=== PATIENT | male | born 1950 | race Caucasian/White ===

== ENCOUNTER 2018-05-04 12:53 | Inpatient (IN) | payer MEDICARE, OTHER ==
[~2018-05-04] VITALS: Ht 177.8 cm; Wt 105.0 kg
[~2018-05-04 12:53] MED LIST: HYDR28CR14 TOP
[2018-05-04] MEDS ORDERED: piperacillin/tazo 3.375gm/50ml 50 ML IV ONE (13:40)
[2018-05-04 14:17] LABS: C-REACTIVE PROTEIN 17.24 MG/DL (0.0-0.5)
[2018-05-04] MEDS ORDERED: thiamine 100mg/ml 2ml inj. IV ONE (14:40)
[2018-05-04] MEDS ORDERED: morphine 2 MG/ML inj. syringe IV PRN ×2 (14:40)
[2018-05-04] MEDS ORDERED: acetaminophen 325mg tablet PO PRN ×2 (14:40)
[2018-05-04] MEDS ORDERED: potassium Cl 40MEQ/NS 500ml 500 ML IV PRN ×2 (14:40)
[2018-05-04] MEDS ORDERED: diphenhydrAMINE 25mg capsule PO PRN (14:40)
[2018-05-04] MEDS: K and/or MAG REPLACEMENT MC SCH (14:40)
[2018-05-04] MEDS ORDERED: haloperidol 5mg tablet PO PRN (14:40)
[2018-05-04] MEDS ORDERED: dextrose 50%-water 50ml dispensing syringe IV PRN (14:40)
[2018-05-04] MEDS ORDERED: HYDROcodone/acetaminophen 5mg/325mg tablet PO PRN (14:40)
[2018-05-04] MEDS: atenolol 50mg tablet PO SCH (14:40)
[2018-05-04] MEDS ORDERED: ondansetron/PF 4mg/2ml inj IV PRN (14:40)
[2018-05-04] MEDS ORDERED: potassium Cl 20 mEq SR tablet PO PRN (14:40)
[2018-05-04] MEDS ORDERED: magnesium 1gm/100ml D5W IVPB 100 ML IV PRN (14:40)
[2018-05-04] MEDS ORDERED: diphenhydrAMINE 50 mg/ml inj IV PRN (14:40)
[2018-05-04] MEDS ORDERED: magnesium Cl slow-release 64mg tablet PO PRN (14:40)
[2018-05-04] MEDS ORDERED: mag hydrox/Alum hydrox/simeth 30ml oral suspension PO PRN (14:40)
[2018-05-04] MEDS ORDERED: LORazepam 2 mg/ml vial IV PRN (14:40)
[2018-05-04] MEDS ORDERED: bisacodyl 10mg suppository rectal RC PRN (14:40)
[2018-05-04] MEDS ORDERED: acetaminophen 650mg rectal suppository RC PRN (14:40)
[2018-05-04] MEDS ORDERED: magnesium 4gm in 100ml NS 100 ML IV PRN (14:40)
[2018-05-04] MEDS ORDERED: haloperidol lactate 5mg/ml inj IM PRN (14:40)
[2018-05-04] MEDS ORDERED: magnesium hydroxide 30ml (MOM) UD suspension PO PRN (14:40)
[2018-05-04 15:11] LABS: HEMOGLOBIN A1C 5.7 % (4.5-6.2)
[2018-05-04 15:12] LABS: ALANINE AMINOTRANSFERASE 13 U/L (12-78); ALBUMIN 2.5 G/DL (3.4-5.0); ALBUMIN/GLOBULIN RATIO 0.6 (1.1-1.5); ALKALINE PHOSPHATASE 117 IU/L (46-116); ANION GAP 12 (8-16); ASPARTATE AMINO TRANSFERASE 23 U/L (10-37); BILIRUBIN,TOTAL 2.3 MG/DL (0.1-1.0); BLOOD UREA NITROGEN 11 MG/DL (7-18); BUN/CREATININE RATIO 13.3 (5.4-32.0); CALCIUM 8.3 MG/DL (8.5-10.1); CHLORIDE 105 MMOL/L (99-107); CREATININE 0.83 MG/DL (0.60-1.10); GLUCOSE 123 MG/DL (70-104); MAGNESIUM 2.1 MG/DL (1.5-2.4); PHOSPHORUS 2.3 MG/DL (2.3-4.5); POTASSIUM 3.6 MMOL/L (3.5-5.1); SODIUM 140 MMOL/L (135-145); TOTAL CARBON DIOXIDE 23.3 MMOL/L (24-32); TOTAL PROTEIN 6.9 G/DL (6.4-8.2); eGFR > 90 ML/MIN
[2018-05-04 15:17] LABS: BASOPHILS # (AUTO) 0.1 X10'3 (0-0.2); BASOPHILS % (AUTO) 1.4 % (0-1); EOSINOPHILS # (AUTO) 0.1 X10'3 (0-0.9); EOSINOPHILS % (AUTO) 1.4 % (0-6); HEMATOCRIT 39.4 % (42.0-52.0); HEMOGLOBIN 13.4 g/dl (14.0-17.9); LYMPHOCYTES # (AUTO) 0.6 X10'3 (1.1-4.8); LYMPHOCYTES % (AUTO) 5.7 % (21-51); MEAN CORPUSCULAR HEMOGLOBIN 36.2 PG (27.0-31.0); MEAN CORPUSCULAR VOLUME 106.4 FL (78-98); MEAN PLATELET VOLUME 7.1 FL (7.4-10.4); MONOCYTES # (AUTO) 0.4 X10'3 (0-0.9); MONOCYTES % (AUTO) 3.8 % (2-12); NEUTROPHILS # (AUTO) 9.1 X10'3 (1.8-7.7); NEUTROPHILS % (AUTO) 87.7 % (42-75); PLATELET COUNT 281 X10'3 (140-440); RED CELL DISTRIBUTION WIDTH 15.4 % (11.5-14.5); WHITE BLOOD COUNT 10.4 X10'3 (4.5-11.0)
[2018-05-04] MEDS ORDERED: NIFE30TA95 PO (15:20)
[2018-05-04 17:00] VITALS: BP 160/91
[2018-05-04] MEDS: normal saline 1000ml 1,000 ML IV SCH ×2 (17:16→21:17)
[2018-05-04] MEDS: piperacillin/tazo 3.375gm/50ml 50 ML IV SCH (19:37)
[2018-05-04] MEDS: heparin, porcine 5000 units/ml vial SQ SCH (19:44)
[2018-05-04 21:00] VITALS: BP 122/65
[2018-05-04] MEDS ORDERED: diphenhydrAMINE 25mg capsule PO ONE (21:20)
[2018-05-04] MEDS ORDERED: DIPH25CA6 PO (22:20)
[2018-05-05] MEDS: LORazepam 1 MG tablet PO PRN (01:08)
[2018-05-05] MEDS: piperacillin/tazo 3.375gm/50ml 50 ML IV SCH ×4 (02:24→19:45)
[2018-05-05] MEDS: normal saline 1000ml 1,000 ML IV SCH ×4 (03:57→23:57)
[2018-05-05 05:54] LABS: BASOPHILS % (AUTO) 0.5 % (0-1); EOSINOPHILS # (AUTO) 0.5 X10'3 (0-0.9); HEMATOCRIT 35.5 % (42.0-52.0); HEMOGLOBIN 12.1 g/dl (14.0-17.9); LYMPHOCYTES # (AUTO) 0.6 X10'3 (1.1-4.8); LYMPHOCYTES % (AUTO) 8.2 % (21-51); MEAN CORPUSCULAR HEMOGLOBIN 36.5 PG (27.0-31.0); MEAN CORPUSCULAR HGB CONC 34.1 % (33.0-36.5); MEAN PLATELET VOLUME 7.3 FL (7.4-10.4); MONOCYTES # (AUTO) 0.5 X10'3 (0-0.9); NEUTROPHILS # (AUTO) 6.1 X10'3 (1.8-7.7); NEUTROPHILS % (AUTO) 79.3 % (42-75); PLATELET COUNT 231 X10'3 (140-440); RED BLOOD COUNT 3.32 X10'6 (4.70-6.10); WHITE BLOOD COUNT 7.7 X10'3 (4.5-11.0)
[2018-05-05 06:00] VITALS: BP 119/70
[2018-05-05 06:07] LABS: ALANINE AMINOTRANSFERASE 12 U/L (12-78); ALBUMIN 2.1 G/DL (3.4-5.0); ALBUMIN/GLOBULIN RATIO 0.5 (1.1-1.5); ALKALINE PHOSPHATASE 102 IU/L (46-116); ANION GAP 11 (8-16); ASPARTATE AMINO TRANSFERASE 23 U/L (10-37); BILIRUBIN,TOTAL 1.8 MG/DL (0.1-1.0); BLOOD UREA NITROGEN 11 MG/DL (7-18); BUN/CREATININE RATIO 12.5 (5.4-32.0); CALCIUM 7.8 MG/DL (8.5-10.1); CHLORIDE 107 MMOL/L (99-107); CHOL/HDL RATIO 5.8 (0.00-4.99); CHOLESTEROL 122 MG/DL (0-200); CREATININE 0.88 MG/DL (0.60-1.10); GLUCOSE 105 MG/DL (70-104); HDL CHOLESTEROL 21 MG/DL (35-60); LDL CHOLESTEROL 88 MG/DL (50-100); PHOSPHORUS 2.8 MG/DL (2.3-4.5); POTASSIUM 3.2 MMOL/L (3.5-5.1); SODIUM 141 MMOL/L (135-145); TOTAL CARBON DIOXIDE 23.1 MMOL/L (24-32); TOTAL PROTEIN 6.2 G/DL (6.4-8.2); TRIGLYCERIDES 110 MG/DL (20-135); eGFR 86 ML/MIN
[2018-05-05] MEDS: folic acid 1mg tablet PO SCH (07:07)
[2018-05-05] MEDS: atenolol 50mg tablet PO SCH (07:07)
[2018-05-05] MEDS: multivitamins, therapeutics tablet PO SCH (07:07)
[2018-05-05] MEDS: thiamine 100mg tablet PO SCH (07:07)
[2018-05-05] MEDS: potassium Cl 20 mEq SR tablet PO PRN ×3 (07:08→17:29)
[2018-05-05] MEDS: heparin, porcine 5000 units/ml vial SQ SCH ×2 (07:08→19:46)
[2018-05-05] MEDS: K and/or MAG REPLACEMENT MC SCH (08:00)
[2018-05-05 10:00] VITALS: BP 125/72
[2018-05-05] MEDS ORDERED: VANCOMYCIN LEVEL IV ONE (15:30)
[2018-05-05 18:00] VITALS: BP 132/74
[2018-05-05] MEDS: lactobacillus rhamnosus 10,000 MMU CELLS/CAPSULE PO SCH (19:45)
[2018-05-05] MEDS: diphenhydrAMINE 25mg capsule PO PRN (19:45)
[2018-05-05 22:00] VITALS: BP 135/83
[2018-05-06] VITALS (13 sets, daily range): BP systolic 119–145; BP diastolic 71–88
[2018-05-06] MEDS: temazepam 15mg capsule PO PRN (00:20)
[2018-05-06] MEDS: piperacillin/tazo 3.375gm/50ml 50 ML IV SCH ×4 (01:59→19:51)
[2018-05-06] MEDS: normal saline 1000ml 1,000 ML IV SCH ×3 (05:43→19:52)
[2018-05-06 05:55] LABS: ALANINE AMINOTRANSFERASE 17 U/L (12-78); ALBUMIN 2.2 G/DL (3.4-5.0); ALBUMIN/GLOBULIN RATIO 0.5 (1.1-1.5); ALKALINE PHOSPHATASE 108 IU/L (46-116); ANION GAP 10 (8-16); ASPARTATE AMINO TRANSFERASE 36 U/L (10-37); BILIRUBIN,TOTAL 1.3 MG/DL (0.1-1.0); BLOOD UREA NITROGEN 9 MG/DL (7-18); BUN/CREATININE RATIO 11.3 (5.4-32.0); CALCIUM 8.1 MG/DL (8.5-10.1); CHLORIDE 110 MMOL/L (99-107); GLUCOSE 101 MG/DL (70-104); POTASSIUM 3.4 MMOL/L (3.5-5.1); SODIUM 144 MMOL/L (135-145); TOTAL CARBON DIOXIDE 24.3 MMOL/L (24-32); TOTAL PROTEIN 6.3 G/DL (6.4-8.2); eGFR > 90 ML/MIN
[2018-05-06] MEDS: thiamine 100mg tablet PO SCH (07:38)
[2018-05-06] MEDS: atenolol 50mg tablet PO SCH (07:38)
[2018-05-06] MEDS: multivitamins, therapeutics tablet PO SCH (07:38)
[2018-05-06] MEDS: potassium Cl 20 mEq SR tablet PO PRN ×3 (07:38→19:52)
[2018-05-06] MEDS: lactobacillus rhamnosus 10,000 MMU CELLS/CAPSULE PO SCH ×2 (07:38→19:52)
[2018-05-06] MEDS: folic acid 1mg tablet PO SCH (07:38)
[2018-05-06] MEDS: emollient combination-Eucerin 250 ML LOTION TP SCH (07:38)
[2018-05-06] MEDS: K and/or MAG REPLACEMENT MC SCH (08:00)
[2018-05-06] MEDS: heparin, porcine 5000 units/ml vial SQ SCH ×2 (08:00→19:51)
[2018-05-06 08:22] LABS: HEMOGLOBIN 11.8 g/dl (14.0-17.9); RED BLOOD COUNT 3.14 X10'6 (4.70-6.10); WHITE BLOOD COUNT 6.1 X10'3 (4.5-11.0)
[2018-05-06 08:23] LABS: BASOPHILS % (AUTO) 0.5 % (0-1); EOSINOPHILS % (AUTO) 16.3 % (0-6); LYMPHOCYTES % (AUTO) 15.9 % (21-51); MEAN CORPUSCULAR HEMOGLOBIN 37.6 PG (27.0-31.0); MEAN CORPUSCULAR HGB CONC 34.8 % (33.0-36.5); MEAN CORPUSCULAR VOLUME 108.1 FL (78-98); MEAN PLATELET VOLUME 7.3 FL (7.4-10.4); MONOCYTES # (AUTO) 0.3 X10'3 (0-0.9); MONOCYTES % (AUTO) 5.7 % (2-12); NEUTROPHILS # (AUTO) 3.8 X10'3 (1.8-7.7); NEUTROPHILS % (AUTO) 61.6 % (42-75); PLATELET COUNT 228 X10'3 (140-440); RED CELL DISTRIBUTION WIDTH 14.4 % (11.5-14.5)
[2018-05-06] MEDS: vancomycin inj 1,250 MG in normal saline 250ml IV soln 250 ML IV SCH ×2 (09:15→17:43)
[2018-05-06] MEDS ORDERED: sevoflurane 250ml liquid IH ONE (15:16)
[2018-05-06] MEDS ORDERED: fentaNYL/PF 50MCG/1 ML 2ML syringe ONE ×2 (15:18→15:26)
[2018-05-06] MEDS ORDERED: propofol inj 0 ML IV ONE ×2 (15:27)
[2018-05-06] MEDS ORDERED: propofol inj 20 ML IV ONE (15:27)
[2018-05-06] MEDS ORDERED: LIDOcaine 2% (20mg/ml) 5ml vial ONE (15:27)
[2018-05-06] MEDS ORDERED: ePHEDrine 50MG/ML INJ. ONE (15:43)
[2018-05-06] MEDS ORDERED: ondansetron/PF 4mg/2ml inj ONE (15:54)
[2018-05-06] MEDS ORDERED: ringers solution, lacted 1,000 ML IV SCH (16:12)
[2018-05-06] MEDS ORDERED: morphine 4 MG/ML inj SYRINge IV PRN (16:15)
[2018-05-06] MEDS ORDERED: HYDROmorphone inj. 0.5 MG/0.5 ML DISP.SYRIN IV PRN ×2 (16:15)
[2018-05-06] MEDS ORDERED: ondansetron/PF 4mg/2ml inj IV PRN (16:15)
[2018-05-06] MEDS: HYDROcodone/acetaminophen 10/325mg tab PO PRN (19:19)
[2018-05-07] MEDS: vancomycin inj 1,250 MG in normal saline 250ml IV soln 250 ML IV SCH ×2 (00:13→09:20)
[2018-05-07] MEDS: HYDROcodone/acetaminophen 10/325mg tab PO PRN ×3 (00:13→20:41)
[2018-05-07 02:00] VITALS: BP 108/66
[2018-05-07] MEDS: piperacillin/tazo 3.375gm/50ml 50 ML IV SCH ×4 (02:36→20:41)
[2018-05-07] MEDS: normal saline 1000ml 1,000 ML IV SCH ×4 (02:37→20:40)
[2018-05-07] MEDS: LORazepam 1 MG tablet PO PRN (04:59)
[2018-05-07 06:00] VITALS: BP 102/63
[2018-05-07] MEDS: K and/or MAG REPLACEMENT MC SCH (08:00)
[2018-05-07] MEDS: heparin, porcine 5000 units/ml vial SQ SCH ×2 (08:10→20:41)
[2018-05-07] MEDS: thiamine 100mg tablet PO SCH (08:10)
[2018-05-07] MEDS: atenolol 50mg tablet PO SCH (08:11)
[2018-05-07] MEDS: multivitamins, therapeutics tablet PO SCH (08:11)
[2018-05-07] MEDS: lactobacillus rhamnosus 10,000 MMU CELLS/CAPSULE PO SCH ×2 (08:11→20:41)
[2018-05-07] MEDS: folic acid 1mg tablet PO SCH (08:11)
[2018-05-07] MEDS: emollient combination-Eucerin 250 ML LOTION TP SCH (08:13)
[2018-05-07] MEDS: diphenhydrAMINE 25mg capsule PO PRN ×2 (08:18→20:42)
[2018-05-07] MEDS ORDERED: VANCOMYCIN LEVEL IV ONE (08:30)
[2018-05-07 09:08] LABS: BASOPHILS % (AUTO) 0.5 % (0-1); EOSINOPHILS # (AUTO) 0.9 X10'3 (0-0.9); EOSINOPHILS % (AUTO) 12.2 % (0-6); HEMATOCRIT 34.2 % (42.0-52.0); LYMPHOCYTES # (AUTO) 0.6 X10'3 (1.1-4.8); LYMPHOCYTES % (AUTO) 7.9 % (21-51); MEAN CORPUSCULAR HEMOGLOBIN 37.9 PG (27.0-31.0); MEAN CORPUSCULAR HGB CONC 35.2 % (33.0-36.5); MEAN CORPUSCULAR VOLUME 107.7 FL (78-98); MEAN PLATELET VOLUME 7.1 FL (7.4-10.4); MONOCYTES # (AUTO) 0.6 X10'3 (0-0.9); MONOCYTES % (AUTO) 7.3 % (2-12); NEUTROPHILS # (AUTO) 5.5 X10'3 (1.8-7.7); NEUTROPHILS % (AUTO) 72.1 % (42-75); PLATELET COUNT 242 X10'3 (140-440); RED BLOOD COUNT 3.17 X10'6 (4.70-6.10); RED CELL DISTRIBUTION WIDTH 14.4 % (11.5-14.5); WHITE BLOOD COUNT 7.6 X10'3 (4.5-11.0)
[2018-05-07 09:16] LABS: ALANINE AMINOTRANSFERASE 24 U/L (12-78); ALBUMIN 2.4 G/DL (3.4-5.0); ALBUMIN/GLOBULIN RATIO 0.6 (1.1-1.5); ALKALINE PHOSPHATASE 118 IU/L (46-116); ANION GAP 10 (8-16); ASPARTATE AMINO TRANSFERASE 43 U/L (10-37); BILIRUBIN,TOTAL 1.6 MG/DL (0.1-1.0); BLOOD UREA NITROGEN 5 MG/DL (7-18); BUN/CREATININE RATIO 5.7 (5.4-32.0); CHLORIDE 105 MMOL/L (99-107); CREATININE 0.87 MG/DL (0.60-1.10); GLUCOSE 139 MG/DL (70-104); MAGNESIUM 1.7 MG/DL (1.5-2.4); PHOSPHORUS 2.6 MG/DL (2.3-4.5); POTASSIUM 3.5 MMOL/L (3.5-5.1); SODIUM 139 MMOL/L (135-145); TOTAL CARBON DIOXIDE 23.9 MMOL/L (24-32); TOTAL PROTEIN 6.7 G/DL (6.4-8.2); eGFR 87 ML/MIN
[2018-05-07 09:22] LABS: VANCOMYCIN,TROUGH 27.9 UG/ML (6.0-14.0)
[2018-05-07 10:00] VITALS: BP 117/72
[2018-05-07 14:00] VITALS: BP 116/64
[2018-05-07] MEDS: vancomycin/NS 1 GM ADD-VANTAGE 250 ML IV SCH (16:49)
[2018-05-07 18:00] VITALS: BP 101/68
[2018-05-07 22:00] VITALS: BP 118/75
[2018-05-08] MEDS: vancomycin/NS 1 GM ADD-VANTAGE 250 ML IV SCH ×3 (00:59→17:07)
[2018-05-08] MEDS: piperacillin/tazo 3.375gm/50ml 50 ML IV SCH ×4 (01:56→19:54)
[2018-05-08] MEDS: normal saline 1000ml 1,000 ML IV SCH ×4 (05:30→23:17)
[2018-05-08 06:00] VITALS: BP 127/93
[2018-05-08] MEDS: lactobacillus rhamnosus 10,000 MMU CELLS/CAPSULE PO SCH ×2 (07:43→19:53)
[2018-05-08] MEDS: multivitamins, therapeutics tablet PO SCH (07:44)
[2018-05-08] MEDS: emollient combination-Eucerin 250 ML LOTION TP SCH (07:44)
[2018-05-08] MEDS: folic acid 1mg tablet PO SCH (07:44)
[2018-05-08] MEDS: heparin, porcine 5000 units/ml vial SQ SCH ×2 (07:44→19:54)
[2018-05-08] MEDS: atenolol 50mg tablet PO SCH (07:44)
[2018-05-08] MEDS: thiamine 100mg tablet PO SCH (07:44)
[2018-05-08] MEDS: K and/or MAG REPLACEMENT MC SCH (08:00)
[2018-05-08 08:08] LABS: BASOPHILS # (AUTO) 0.1 X10'3 (0-0.2); EOSINOPHILS % (AUTO) 14.2 % (0-6); HEMATOCRIT 32.3 % (42.0-52.0); HEMOGLOBIN 11.4 g/dl (14.0-17.9); LYMPHOCYTES # (AUTO) 0.7 X10'3 (1.1-4.8); LYMPHOCYTES % (AUTO) 10.9 % (21-51); MEAN CORPUSCULAR HEMOGLOBIN 37.9 PG (27.0-31.0); MEAN CORPUSCULAR HGB CONC 35.3 % (33.0-36.5); MEAN CORPUSCULAR VOLUME 107.4 FL (78-98); MEAN PLATELET VOLUME 7.2 FL (7.4-10.4); MONOCYTES # (AUTO) 0.6 X10'3 (0-0.9); MONOCYTES % (AUTO) 9.1 % (2-12); NEUTROPHILS # (AUTO) 4.5 X10'3 (1.8-7.7); NEUTROPHILS % (AUTO) 63.8 % (42-75); PLATELET COUNT 251 X10'3 (140-440); RED BLOOD COUNT 3.01 X10'6 (4.70-6.10); RED CELL DISTRIBUTION WIDTH 14.6 % (11.5-14.5); WHITE BLOOD COUNT 6.9 X10'3 (4.5-11.0)
[2018-05-08 08:26] LABS: ALANINE AMINOTRANSFERASE 20 U/L (12-78); ALBUMIN 2.2 G/DL (3.4-5.0); ALBUMIN/GLOBULIN RATIO 0.5 (1.1-1.5); ALKALINE PHOSPHATASE 104 IU/L (46-116); ANION GAP 11 (8-16); ASPARTATE AMINO TRANSFERASE 31 U/L (10-37); BILIRUBIN,TOTAL 1.3 MG/DL (0.1-1.0); BLOOD UREA NITROGEN 6 MG/DL (7-18); CALCIUM 8.1 MG/DL (8.5-10.1); CHLORIDE 109 MMOL/L (99-107); CREATININE 0.86 MG/DL (0.60-1.10); GLUCOSE 99 MG/DL (70-104); PHOSPHORUS 2.9 MG/DL (2.3-4.5); POTASSIUM 3.6 MMOL/L (3.5-5.1); SODIUM 143 MMOL/L (135-145); TOTAL CARBON DIOXIDE 22.8 MMOL/L (24-32); TOTAL PROTEIN 6.6 G/DL (6.4-8.2); eGFR 88 ML/MIN
[2018-05-08 10:00] VITALS: BP 111/77
[2018-05-08] MEDS ORDERED: VANCOMYCIN LEVEL IV ONE (16:30)
[2018-05-08] MEDS: HYDROcodone/acetaminophen 10/325mg tab PO PRN ×2 (17:08→23:14)
[2018-05-08 18:00] VITALS: BP 120/68
[2018-05-08] MEDS: diphenhydrAMINE 25mg capsule PO PRN (19:53)
[2018-05-08] MEDS: VANCOMYCIN 750MG IV in NS 250 ML IV SCH (19:54)
[2018-05-08 22:00] VITALS: BP 110/60
[2018-05-08] MEDS: temazepam 15mg capsule PO PRN (23:16)
[2018-05-09] MEDS: diphenhydrAMINE 25mg capsule PO PRN ×2 (02:25→21:39)
[2018-05-09] MEDS: piperacillin/tazo 3.375gm/50ml 50 ML IV SCH ×4 (02:25→19:52)
[2018-05-09] MEDS: VANCOMYCIN 750MG IV in NS 250 ML IV SCH ×3 (04:01→19:53)
[2018-05-09 07:00] VITALS: BP 110/62
[2018-05-09] MEDS: heparin, porcine 5000 units/ml vial SQ SCH ×2 (08:00→08:54)
[2018-05-09] MEDS: K and/or MAG REPLACEMENT MC SCH (08:00)
[2018-05-09 08:50] LABS: BASOPHILS # (AUTO) 0.1 X10'3 (0-0.2)
[2018-05-09 08:53] LABS: ALANINE AMINOTRANSFERASE 21 U/L (12-78); ALBUMIN 2.6 G/DL (3.4-5.0); ALBUMIN/GLOBULIN RATIO 0.5 (1.1-1.5); ALKALINE PHOSPHATASE 116 IU/L (46-116); ANION GAP 12 (8-16); ASPARTATE AMINO TRANSFERASE 32 U/L (10-37); BILIRUBIN,TOTAL 1.2 MG/DL (0.1-1.0); BLOOD UREA NITROGEN 5 MG/DL (7-18); BUN/CREATININE RATIO 5.4 (5.4-32.0); CALCIUM 8.7 MG/DL (8.5-10.1); CHLORIDE 108 MMOL/L (99-107); CREATININE 0.93 MG/DL (0.60-1.10); GLUCOSE 90 MG/DL (70-104); MAGNESIUM 2.2 MG/DL (1.5-2.4); PHOSPHORUS 2.9 MG/DL (2.3-4.5); POTASSIUM 3.5 MMOL/L (3.5-5.1); SODIUM 145 MMOL/L (135-145); TOTAL CARBON DIOXIDE 24.7 MMOL/L (24-32); TOTAL PROTEIN 7.5 G/DL (6.4-8.2); eGFR 80 ML/MIN
[2018-05-09] MEDS: atenolol 50mg tablet PO SCH (08:53)
[2018-05-09] MEDS: folic acid 1mg tablet PO SCH (08:53)
[2018-05-09] MEDS: lactobacillus rhamnosus 10,000 MMU CELLS/CAPSULE PO SCH ×2 (08:53→19:53)
[2018-05-09] MEDS: thiamine 100mg tablet PO SCH (08:53)
[2018-05-09] MEDS: multivitamins, therapeutics tablet PO SCH (08:53)
[2018-05-09] MEDS: normal saline 1000ml 1,000 ML IV SCH (08:55)
[2018-05-09] MEDS: emollient combination-Eucerin 250 ML LOTION TP SCH (08:57)
[2018-05-09 09:39] LABS: BASOPHILS % (AUTO) 1.3 % (0-1); EOSINOPHILS # (AUTO) 1.2 X10'3 (0-0.9); EOSINOPHILS % (AUTO) 14.1 % (0-6); HEMATOCRIT 27.6 % (42.0-52.0); HEMOGLOBIN 9.9 g/dl (14.0-17.9); LYMPHOCYTES % (AUTO) 12.1 % (21-51); MEAN CORPUSCULAR HEMOGLOBIN 39.4 PG (27.0-31.0); MEAN CORPUSCULAR HGB CONC 35.8 % (33.0-36.5); MEAN PLATELET VOLUME 7.9 FL (7.4-10.4); MONOCYTES # (AUTO) 0.7 X10'3 (0-0.9); MONOCYTES % (AUTO) 7.9 % (2-12); NEUTROPHILS # (AUTO) 5.4 X10'3 (1.8-7.7); NEUTROPHILS % (AUTO) 64.6 % (42-75); PLATELET COUNT 325 X10'3 (140-440); RED BLOOD COUNT 2.51 X10'6 (4.70-6.10); RED CELL DISTRIBUTION WIDTH 14.8 % (11.5-14.5); WHITE BLOOD COUNT 8.4 X10'3 (4.5-11.0)
[2018-05-09 18:00] VITALS: BP 120/75
[2018-05-09] MEDS ORDERED: VANCOMYCIN LEVEL IV ONE (19:30)
[2018-05-09 22:00] VITALS: BP 124/72
[2018-05-09 23:16] LABS: CLARITY,URINE CLOUDY (Clear); COLOR,URINE AMBER (Yellow); GLUCOSE, URINE NEGATIVE (Neg); KETONES,URINE NEGATIVE (Neg); LEUKOCYTE ESTERASE ,URINE NEGATIVE (Neg); NITRITES, URINE NEGATIVE (Neg); OCCULT BLOOD,URINE LARGE (Neg); PROTEIN,URINE NEGATIVE (Neg); UROBILINOGEN,URINE 0.2 E.U/dL (0.2-1.0)
[2018-05-09 23:22] LABS: UA COLLECTION TYPE CLN CATCH MIDSTREAM
[2018-05-09 23:28] LABS: BACTERIA,URINE NONE SEEN /HPF (Neg); MUCUS STRANDS NONE SEEN /LPF (Neg); RBC,URINE TNTC /HPF (0-2); SQUAMOUS EPITHELIAL CELL,UR NONE SEEN /LPF (FEW); WBC,URINE NONE SEEN /HPF (0-4)
[2018-05-10] MEDS: piperacillin/tazo 3.375gm/50ml 50 ML IV SCH ×2 (02:11→07:35)
[2018-05-10] MEDS: VANCOMYCIN 750MG IV in NS 250 ML IV SCH (03:35)
[2018-05-10 07:04] VITALS: BP 106/54
[2018-05-10] MEDS: multivitamins, therapeutics tablet PO SCH (07:35)
[2018-05-10] MEDS: lactobacillus rhamnosus 10,000 MMU CELLS/CAPSULE PO SCH (07:35)
[2018-05-10] MEDS: thiamine 100mg tablet PO SCH (07:35)
[2018-05-10] MEDS: folic acid 1mg tablet PO SCH (07:36)
[2018-05-10] MEDS: emollient combination-Eucerin 250 ML LOTION TP SCH (07:36)
[2018-05-10] MEDS: atenolol 50mg tablet PO SCH (07:36)
[2018-05-10] MEDS: K and/or MAG REPLACEMENT MC SCH (08:00)
[2018-05-10 10:00] VITALS: BP 125/70
[2018-05-11 08:17] LABS: % FREE PSA 23.3 % (.); PSA, FREE 0.07 ng/mL
== END 2018-05-10 13:50 | disposition left against medical advice (07) | DRG 854 ==
LOC: ER 12:53 → ED HOLD 14:37 → ORTHO 4S 17:01
PROVIDERS: ADMIT Family Medicine; ATTEND Family Medicine
PROC: 0Y6M0ZD Detachment at Right Foot, Partial 4th Ray, Open Approach (ICD-10-PCS; 2018-05-06)
PROC: 0Y6M0ZF Detachment at Right Foot, Partial 5th Ray, Open Approach (ICD-10-PCS; principal; 2018-05-06 15:16)
DX: A41.9 Sepsis, unspecified organism (principal); I96 Gangrene, not elsewhere classified; M86.171 Other acute osteomyelitis, right ankle and foot; M86.671 Other chronic osteomyelitis, right ankle and foot; G62.1 Alcoholic polyneuropathy; I87.2 Venous insufficiency (chronic) (peripheral); L97.519 Non-pressure chronic ulcer of other part of right foot with unspecified severity; I10 Essential (primary) hypertension; K21.9 Gastro-esophageal reflux disease without esophagitis; L08.9 Local infection of the skin and subcutaneous tissue, unspecified; E87.6 Hypokalemia; R31.9 Hematuria, unspecified; L40.9 Psoriasis, unspecified; Z66 Do not resuscitate; Z53.21 Procedure and treatment not carried out due to patient leaving prior to being seen by health care provider; Z91.19 Patient's noncompliance with other medical treatment and regimen; I25.2 Old myocardial infarction; Z87.891 Personal history of nicotine dependence
CPT/HCPCS: 36415; 76775; 80053; 80061; 80202; 81001; 82948; 83036; 83605; 83735; 84100; 84145; 84153; 84154; 85025; 85651; 86140; 87040; 87070; 87077; 87185; 87186; 88305; 93005; 93925; 93970; 96365; 97116; 97162; 97530; 99285; A6222; A6224; A6255; A6258; A6446; A6449; A7000; J1644; J2001; J2405; J2543; J2704; J3010; J3370; J3411; J7030; J7120; Q0163